=== PATIENT | male | born 1950 | race Caucasian/White ===

== ENCOUNTER → 2020-08-21 | Outpatient (CLI) | payer OTHER | END | disposition home or self-care (01) | LOC: LAB SHORT 12:00 → LAB 12:00 | DX: D22.61 Melanocytic nevi of right upper limb, including shoulder (principal) | CPT/HCPCS: 88305 ==

== ENCOUNTER → 2020-09-17 | Outpatient (CLI) | payer OTHER | LOC: LAB SHORT 12:57 → PLD 12:57 | DX: D22.61 Melanocytic nevi of right upper limb, including shoulder (principal); L81.4 Other melanin hyperpigmentation | CPT/HCPCS: 88305 ==

== ENCOUNTER → 2020-10-20 | Outpatient (CLI) | payer OTHER | END | disposition home or self-care (01) | LOC: LAB SHORT 12:41 | DX: D03.4 Melanoma in situ of scalp and neck (principal) | CPT/HCPCS: 88305 ==

== ENCOUNTER → 2021-10-12 | Outpatient (CLI) | payer OTHER | END | disposition home or self-care (01) | LOC: LAB SHORT 12:23 → LAB 12:23 | DX: R30.9 Painful micturition, unspecified (principal) | CPT/HCPCS: 87077; 87086; 87186 ==

== ENCOUNTER → 2023-12-20 | Outpatient (CLI) | payer OTHER ==
[2023-12-20 10:42] LABS: Source, Urine Voided
[2023-12-20 11:58] LABS: Amorphous Mod (0-Heavy); Bacteria Few /hpf; Squamous Epithelial Cells Not Seen /hpf (Few); White Blood Cells, Urine 25-50 /hpf (0-5)
[2023-12-20 12:00] LABS: Other Crystals Rare /hpf
== END | disposition home or self-care (01) ==
LOC: LAB SHORT 10:35 → LAB 10:35
PROVIDERS: Hospitalist
DX: R30.0 Dysuria (principal)
CPT/HCPCS: 81015; 87077; 87086; 87147; 87186

== ENCOUNTER → 2023-12-28 | Outpatient (CLI) | payer OTHER | END | disposition home or self-care (01) | LOC: LAB SHORT 15:42 → LAB 15:42 | DX: R30.0 Dysuria (principal) | CPT/HCPCS: 87077; 87086; 87186 ==

== ENCOUNTER → 2025-05-17 | Outpatient (CLI) | payer OTHER | LOC: LAB 13:25 | DX: R39.9 Unspecified symptoms and signs involving the genitourinary system (principal) ==